=== PATIENT | male | born 2000 | race Caucasian/White ===

== ENCOUNTER 2022-12-19 21:05 | Emergency (ER) | payer OTHER, MEDICAID ==
[~2022-12-19] VITALS: Ht 188 cm; Wt 72.5 kg
[2022-12-19] MEDS ORDERED: MORPHINE SULFATE INJ 2 MG/ml SYRG IM ONE (23:45)
[2022-12-19] MEDS ORDERED: ONDANSETRON ODT 4 MG TAB PO ONE (23:45)
[2022-12-19] MEDS ORDERED: ACE3T PO (23:58)
[2022-12-20 00:36] VITALS: BP 114/73
== END 2022-12-20 01:14 | disposition home or self-care (01) ==
LOC: EDBD 21:05 → ER 21:05
DX: S52.125A Nondisplaced fracture of head of left radius, initial encounter for closed fracture (principal); F12.90 Cannabis use, unspecified, uncomplicated; V03.99XA Pedestrian with other conveyance injured in collision with car, pick-up truck or van, unspecified whether traffic or nontraffic accident, initial encounter; Y93.89 Activity, other specified; Y92.410 Unspecified street and highway as the place of occurrence of the external cause; Y99.8 Other external cause status
CPT/HCPCS: 29105; 70450; 72125; 73090; 73200; 96372; 99285; J2270; Q0162